=== PATIENT | male | born 1975 | race Caucasian/White ===

== ENCOUNTER 2018-05-01 01:44 | Emergency (ER) | payer BC, OTHER ==
[2018-05-01] MEDS ORDERED: Sodium Chloride 0.9% 1,000 ML IV ONE (02:13)
[2018-05-01] MEDS ORDERED: Iohexol 240 (50 ml) PO STA (02:13)
--- NOTE | 2018-05-01 02:13 | C.PDOC ---
History Of Present Illness 42 y/o male presents to the ED complaining of a new onset of LLQ pain for three weeks. He states today the pain radiates to the left lower back. The patient has a Hx of diverticulitis. He reports normally the pain is localized, waxing and waning. The patient took 3 doses of ampicillin over the last three day. He denies any fever, nausea or vomiting. Time Seen by Provider: 05/01/18 01:48 History Per: Patient History/Exam Limitations: no limitations Onset/Duration Of Symptoms: Days Current Symptoms Are (Timing): Still Present Location Of Pain/Discomfort: LLQ Radiation Of Pain To:: Back (left lower back pain (today)) Associated Symptoms: denies: Fever, Nausea, Vomiting Alleviating Factors: Other (3 doses of ampicillin) Recent travel outside of the [place]: No Past Medical History Reviewed: Historical Data, Nursing Documentation, Vital Signs Vital Signs: Last Vital Signs Temp 98.1 F 05/01/18 04:11 Pulse 57 L 05/01/18 04:11 Resp 20 05/01/18 04:11 BP 121/87 05/01/18 04:11 Pulse Ox 96 05/01/18 05:36 - Medical History PMH: Back Problems, Diverticulitis, HTN Surgical History: Appendectomy, Hernia Repair (Right) Family History: States: Unknown Family Hx - Social History Hx Tobacco Use: No Hx Alcohol Use: Yes Hx Substance Use: No - Immunization History Hx Tetanus Toxoid Vaccination: No Hx Influenza Vaccination: Yes Hx Pneumococcal Vaccination: No Review Of Systems Except As Marked, All Systems Reviewed And Found Negative. Constitutional: Negative for: Fever Gastrointestinal: Positive for: Abdominal Pain (LLQ). Negative for: Nausea, Vomiting Musculoskeletal: Positive for: Back Pain (Left lower back) Physical Exam - Physical Exam Appears: Non-toxic, Other (Comfortable) Skin: Normal Color, Warm, Dry Head: Atraumatic, Normacephalic Eye(s): bilateral: PERRL, EOMI Ear(s): Bilateral: Normal Oral Mucosa: Moist Neck: Normal ROM Chest: Symmetrical Respiratory: No Rales, No Rhonchi, No Wheezing, Other (NARD) Gastrointestinal/Abdominal: Soft, Tenderness (minimal tenderness to LLQ), No Guarding, No Rebound Extremity: Normal ROM Extremity: Bilateral: Atraumatic, Normal Color And Temperature, Normal ROM Pulses: Left Radial: Normal, Right Radial: Normal Neurological/Psych: Oriented x3, Normal Speech ED Course And Treatment - Laboratory Results Result Diagrams: 05/01/18 02:18 05/01/18 02:18 O2 Sat by Pulse Oximetry: 96 (RA) Pulse Ox Interpretation: Normal - CT Scan/US Abdomen & Pelvis Other Rad Studies (CT/US): Read By Radiologist, Radiology Report Reviewed CT/US Interpretation: IMPRESSION: No evidence of an acute abnormality. Progress - Re-Evaluation Re-evaluation Note: 05/01/18 05:[address] report neg - Data Reviewed Data Reviewed: Lab, Diagnostic imaging, Old records Medical Decision Making Medical Decision Making: Impression: 42 y/o male, Hx of diverticulitis, with LLQ pain for three weeks that radiates to the left lower back (x1 day) Plan: -CT abd & Pelvis w/ contrast -CMP -Lipase -CBC -Morphine 2 mg IV -IV Fluids -UA Disposition Counseled Patient/Family Regarding: Studies Performed, Diagnosis, Need For Followup - Disposition Referrals: Shane Ware Jr., MD [Primary Care Provider] - Disposition: HOME/ ROUTINE Disposition Time: 05:37 Condition: GOOD Instructions: Acute Abdomen (Belly Pain), Adult (DC) - Clinical Impression Clinical Impression: Abdominal pain - PA / ENERGY CONSERVATION REPRESENTATIVE / Resident Statement MD/DO has reviewed & agrees with the documentation as recorded. - Scribe Statement The provider has reviewed the documentation as recorded by the Scribe (rKisty Ochoa) All medical record entries made by the Scribe were at my direction and personally dictated by me. I have reviewed the chart and agree that the record accurately reflects my personal performance of the history, physical exam, medical decision making, and the department course for this patient. I have also personally directed, reviewed, and agree with the discharge instructions and disposition.
[2018-05-01] MEDS ORDERED: Iohexol 240 (50 ml) ONE (02:20)
[2018-05-01] MEDS ORDERED: Sodium Chloride 0.9% 1,000 ML ONE (02:20)
[2018-05-01 02:21] LABS: BASO % 0.7 % (0.0-2.0); EOS % 1.1 % (0.0-4.0); HEMOGLOBIN 14.4 g/dL (12.0-18.0); LYMPH # 1.7 K/uL (1.0-4.3); LYMPH % 47.8 % (20.0-40.0); MEAN CELL VOLUME 86.1 fL (80.0-94.0); MEAN CORPUSCULAR HGB CONC 34.9 g/dL (33.0-37.0); MONO # 0.4 K/uL (0.0-0.8); MONO % 11.4 % (0.0-10.0); NEUT # 1.4 K/uL (1.8-7.0); RBC 4.79 Mil/uL (4.40-5.90); RED CELL DISTRIBUTION WIDTH 13.8 % (11.5-14.5); WHITE BLOOD COUNT 3.6 K/uL (4.8-10.8)
[2018-05-01 02:43] LABS: URINE BACTERIA RARE (<OCC); URINE BILIRUBIN NEGATIVE (NEGATIVE); URINE BLOOD 1+ (NEGATIVE); URINE CLARITY Clear (Clear); URINE COLOR Yellow (YELLOW); URINE GLUCOSE (UA) NORMAL (Normal); URINE LEUKOCYTE ESTERASE NEG Leu/uL (Negative); URINE PROTEIN NEGATIVE (NEGATIVE)
[2018-05-01 03:30] LABS: ALB/GLOB RATIO 1.5 (1.0-2.1); ALBUMIN 4.1 g/dL (3.5-5.0); ALT/SGPT 34 U/L (21-72); AST/SGOT 22 U/L (17-59); BLOOD UREA NITROGEN 22 mg/dL (9-20); CALCIUM 8.7 mg/dl (8.6-10.4); GFR NON-AFRICAN AMERICAN > 60; LIPASE 117 U/L (23-300)
[2018-05-01] MEDS ORDERED: Iodixanol 320 MG/ML 100 ML BOTTLE IV ONE (03:47)
[2018-05-01 05:52] VITALS: BP 129/83; PULSE 58; RESP 16; TEMP 97.9; O2SAT 100
--- NOTE | 2018-05-01 09:06 | CT ---
Date of service: 05/01/2018 PROCEDURE: CT Abdomen and Pelvis without intravenous contrast HISTORY: Left lower quadrant abdominal pain. Diverticulitis. COMPARISON: None available. TECHNIQUE: Multiple contiguous axial images were performed through the abdomen and pelvis with the use of intravenous contrast. Subsequently, sagittal and coronal reformatted images were obtained. Radiation dose: Total exam DLP = 276 mGy-cm. This CT exam was performed using one or more of the following dose reduction techniques: Automated exposure control, adjustment of the mA and/or kV according to patient size, and/or use of iterative reconstruction technique. FINDINGS: LOWER THORAX: Bibasilar atelectasis. Small hiatal hernia. LIVER: Fatty infiltration of the liver. GALLBLADDER AND BILE DUCTS: Partially distended gallbladder with gallstones. PANCREAS: Unremarkable. No gross lesion or ductal dilatation. SPLEEN: Unremarkable. ADRENALS: Unremarkable. No mass. KIDNEYS AND URETERS: Unremarkable. No hydronephrosis. No solid mass. VASCULATURE: Unremarkable. No aortic aneurysm. BOWEL: Diverticulosis. Duodenal diverticulum. Large amount of stool in the colon. Correlation with patient's clinical history of constipation is recommended. Nonspecific fluid-filled small bowel loops. Findings may represent ileus versus enteritis versus slow transit versus peristalsis. Clinical correlation. APPENDIX: Prior appendectomy. PERITONEUM: Unremarkable. No free fluid. No free air. LYMPH NODES: Unremarkable. No enlarged lymph nodes. BLADDER: Urinary bladder distention. Correlation with patient's voiding status is recommended. REPRODUCTIVE: Unremarkable. BONES: No acute fracture. OTHER FINDINGS: Fat containing umbilical hernia. IMPRESSION: 1. Diverticulosis. Large amount of stool in the colon. Correlation with patient's clinical history of constipation is recommended. 2. Nonspecific fluid-filled small bowel loops. Findings may represent ileus versus enteritis versus slow transit versus peristalsis. Clinical correlation. 3. Duodenal diverticulum. 4. Partially distended gallbladder with gallstones. Clinical correlation. 5. Fatty infiltration of the liver.
== END 2018-05-01 06:06 | disposition home or self-care (01) ==
LOC: C.ER 01:44 → SUPCPDRO 01:44 → C.ER 06:06
DX: R10.32 Left lower quadrant pain (principal)
CPT/HCPCS: 74177; 80053; 81001; 83690; 85025; 96361; 96374; 99284; J2270; J7030; Q9966; Q9967

== ENCOUNTER 2018-06-23 10:32 | Inpatient (IN) | payer BC ==
[2018-06-23] MEDS ORDERED: Sodium Chloride 0.9% 1,000 ML IV STA (11:33)
[2018-06-23] MEDS ORDERED: Iohexol 240 (50 ml) PO STA (11:33)
[2018-06-23 11:45] LABS: BASO % 0.4 % (0.0-2.0); EOS % 0.6 % (0.0-4.0); HEMOGLOBIN 14.6 g/dL (12.0-18.0); LYMPH % 14.7 % (20.0-40.0); MEAN CELL VOLUME 86.3 fL (80.0-94.0); MEAN CORPUSCULAR HEMOGLOBIN 30.1 pg (27.0-31.0); MEAN CORPUSCULAR HGB CONC 34.9 g/dL (33.0-37.0); MEAN PLATELET VOLUME 7.8 fL (7.2-11.7); MONO # 0.6 K/uL (0.0-0.8); MONO % 9.1 % (0.0-10.0); NEUT # 5.2 K/uL (1.8-7.0); NEUT % 75.2 % (50.0-75.0); RBC 4.84 Mil/uL (4.40-5.90); RED CELL DISTRIBUTION WIDTH 13.6 % (11.5-14.5)
[2018-06-23] MEDS ORDERED: Iohexol 240 (50 ml) ONE (11:49)
[2018-06-23] MEDS ORDERED: Morphine 4 MG/ML VIAL ONE (11:50)
[2018-06-23] MEDS ORDERED: Sodium Chloride 0.9% 1,000 ML ONE (11:50)
[2018-06-23 11:52] LABS: URINE BILIRUBIN NEGATIVE (NEGATIVE); URINE BLOOD NEGATIVE (NEGATIVE); URINE CLARITY Clear (Clear); URINE COLOR Yellow (YELLOW); URINE GLUCOSE (UA) NORMAL (Normal); URINE LEUKOCYTE ESTERASE NEG Leu/uL (Negative); URINE PROTEIN NEGATIVE (NEGATIVE)
[2018-06-23 12:01] LABS: ALB/GLOB RATIO 1.4 (1.0-2.1); ALBUMIN 4.1 g/dL (3.5-5.0); ALT/SGPT 30 U/L (21-72); AST/SGOT 24 U/L (17-59); BLOOD UREA NITROGEN 21 mg/dL (9-20); CALCIUM 8.4 mg/dl (8.6-10.4); GFR NON-AFRICAN AMERICAN > 60; LIPASE 70 U/L (23-300)
--- NOTE | 2018-06-23 12:40 | C.PDOC ---
History Of Present Illness 42 y/o male presents to the ED complaining of abdominal pain for the last 3 days. He reports PMHx of diverticulitis, states current pain is similar to previous episodes. Describes pain as localized to the left lower quadrant, radiating to the back. Otherwise denies any nausea, vomiting, diarrhea, UTI symptoms, or fever. No recent travel. No sick contacts. Time Seen by Provider: 06/23/18 10:46 Chief Complaint (Nursing): Abdominal Pain History Per: Patient History/Exam Limitations: no limitations Onset/Duration Of Symptoms: Days (x3) Current Symptoms Are (Timing): Still Present Location Of Pain/Discomfort: LLQ Radiation Of Pain To:: Back Past Medical History Reviewed: Historical Data, Nursing Documentation, Vital Signs Vital Signs: Last Vital Signs Temp 98.6 F 06/23/18 10:40 Pulse 66 06/23/18 11:56 Resp 18 06/23/18 11:56 BP 136/83 06/23/18 11:56 Pulse Ox 99 06/23/18 11:56 - Medical History PMH: Back Problems, Diverticulitis, HTN Surgical History: Appendectomy, Hernia Repair (Right) Family History: States: Unknown Family Hx - Social History Hx Tobacco Use: No Hx Alcohol Use: Yes Hx Substance Use: No - Immunization History Hx Tetanus Toxoid Vaccination: No Hx Influenza Vaccination: No Hx Pneumococcal Vaccination: No Review Of Systems Except As Marked, All Systems Reviewed And Found Negative. Constitutional: Negative for: Fever, Chills, Sweats Respiratory: Negative for: Shortness of Breath Gastrointestinal: Positive for: Abdominal Pain (LLQ). Negative for: Nausea, Vomiting, Diarrhea, Hematochezia Genitourinary: Negative for: Dysuria, Frequency, Hematuria Musculoskeletal: Positive for: Back Pain Physical Exam - Physical Exam Appears: Non-toxic, No Acute Distress Skin: Normal Color, Warm, Dry Head: Atraumatic, Normacephalic Eye(s): bilateral: Normal Inspection, PERRL, EOMI Oral Mucosa: Moist Neck: Normal ROM Chest: Symmetrical Cardiovascular: Rhythm Regular, No Murmur Respiratory: Normal Breath Sounds, No Accessory Muscle Use Gastrointestinal/Abdominal: Soft, Tenderness (to the left lower quadrant), Guarding (voluntary), No Rebound Back: No CVA Tenderness, No Vertebral Tenderness Extremity: Bilateral: Atraumatic, Normal Color And Temperature, Normal ROM Pulses: Left Dorsalis Pedis: Normal, Right Dorsalis Pedis: Normal Neurological/Psych: Oriented x3, Normal Speech ED Course And Treatment - Laboratory Results Result Diagrams: 06/23/18 11:41 06/23/18 11:41 O2 Sat by Pulse Oximetry: 99 (RA) Pulse Ox Interpretation: Normal - CT Scan/US CT Abd/Pelvis Other Rad Studies (CT/US): Read By Radiologist, Radiology Report Reviewed CT/US Interpretation: Accession No. : [id number]. Patient Name / ID : NIA PRITCHARD / [id number]. Exam Date : 06/23/2018 14:21:03 ( Approved ). Study Comment : Sex / Age : M / 42Y. Creator : Lauren You. Dictator : Julieta Lerner MD. Die Cast Die Maker : Issue Clerk : Julieta Lerner MD. Approver2 : Report Date : 06/23/2018 14:26:00. My Comment : . PROCEDURE: CT Abdomen and Pelvis with oral and IV contrast. HISTORY: LLQ abd pain. COMPARISON: CT abdomen and pelvis with contrast performed 05/01/18. TECHNIQUE: Contiguous axial images of the abdomen and pelvis. Oral and IV contrast was administered. Coronal and Sagittal reformats generated and reviewed. Contrast dose: 100 mL Visipaque IV. Radiation dose: Total exam DLP = 392.69 mGy-cm. This CT exam was performed using one or more of the following dose reduction techniques: Automated exposure control, adjustment of the mA and/or kV according to patient size, and/or use of iterative reconstruction technique. FINDINGS: LOWER THORAX: Mild bibasilar atelectasis. No visible focal consolidation, pleural effusion, or pneumothorax. Small hiatal hernia. LIVER: Unremarkable. GALLBLADDER AND BILE DUCTS: Probable gallstone in the gallbladder. Suspect small sludge. PANCREAS: Unremarkable. SPLEEN: Unremarkable. ADRENALS: Unremarkable. KIDNEYS AND URETERS: The kidneys enhance symmetrically. No hydronephrosis or obstructing renal calculus. BLADDER: The urinary bladder appears unremarkable. REPRODUCTIVE: The prostate gland measures approximately 3.9 x 5.2 cm. APPENDIX: Surgical clips near the cecum may be seen in the setting of appendectomy. No secondary signs of acute appendicitis. BOWEL: The stomach is nondistended. The bowel loops appear wit hin normal limits of caliber without evidence of intestinal obstruction. Wall thickening and inflammatory changes involving a redundant distal left colon consistent with acute diverticulitis. PERITONEUM: No significant free fluid. No definite free air. LYMPH NODES: No bulky lymphadenopathy identified. VASCULATURE: No aortic aneurysm. Castillo or mural plaque present. BONES: No acute osseous abnormality is detected. OTHER FINDINGS: None. IMPRESSION: Acute diverticulitis of the redundant distal left colon. Probable gallstones/small sludge within the gallbladder. Additional findings as above. Progress Note: Blood work and urine sent to the lab. IVF hydration and [address] abdomen/pelvis ordered with PO and IV contrast. CT shows acute diverticulitis and probable gall stones. Discussed results with patient. Cipro and flagyl IV started. case was d/w patient's PMD who accepted patient to his service for anadmission and IV antibiotics. Disposition - Disposition Disposition: HOSPITALIZED Disposition Time: 15:38 Condition: FAIR - Clinical Impression Clinical Impression: Acute diverticulitis - PA / HEAD BANQUET WAITER/WAITRESS / Resident Statement MD/DO has reviewed & agrees with the documentation as recorded. - Scribe Statement The provider has reviewed the documentation as recorded by the Scribe (Allison Schultz) All medical record entries made by the Scribe were at my direction and personally dictated by me. I have reviewed the chart and agree that the record accurately reflects my personal performance of the history, physical exam, me dical decision making, and the department course for this patient. I have also personally directed, reviewed, and agree with the discharge instructions and disposition. Decision To Admit - Pt Status Changed To: Hospital Disposition Of: Inpatient - Admit Certification Admit to Inpatient:: After my assessment, the patient will require hospitalization for at least two midnights. This is because of the severity of symptoms shown, intensity of services needed, and/or the medical risk in this pa tient being treated as an outpatient. - InPatient: Physician Admission Certification:: will need IV antibiotics for more than 2 days - . Bed Request Type: Regular Patient Diagnosis: Acute diverticulitis
[2018-06-23] MEDS ORDERED: Iodixanol 320 MG/ML 100 ML BOTTLE IV ONE (14:11)
--- NOTE | 2018-06-23 15:01 | CT ---
PROCEDURE: CT Abdomen and Pelvis with oral and IV contrast. HISTORY: LLQ abd pain COMPARISON: CT abdomen and pelvis with contrast performed 05/01/18 TECHNIQUE: Contiguous axial images of the abdomen and pelvis. Oral and IV contrast was administered. Coronal and Sagittal reformats generated and reviewed. Contrast dose: 100 mL Visipaque IV Radiation dose: Total exam DLP = 392.69 mGy-cm. This CT exam was performed using one or more of the following dose reduction techniques: Automated exposure control, adjustment of the mA and/or kV according to patient size, and/or use of iterative reconstruction technique. FINDINGS: LOWER THORAX: Mild bibasilar atelectasis. No visible focal consolidation, pleural effusion, or pneumothorax. Small hiatal hernia. LIVER: Unremarkable. GALLBLADDER AND BILE DUCTS: Probable gallstone in the gallbladder. Suspect small sludge. PANCREAS: Unremarkable. SPLEEN: Unremarkable. ADRENALS: Unremarkable. KIDNEYS AND URETERS: The kidneys enhance symmetrically. No hydronephrosis or obstructing renal calculus. BLADDER: The urinary bladder appears unremarkable. REPRODUCTIVE: The prostate gland measures approximately 3.9 x 5.2 cm. APPENDIX: Surgical clips near the cecum may be seen in the setting of appendectomy. No secondary signs of acute appendicitis. BOWEL: The stomach is nondistended. The bowel loops appear within normal limits of caliber without evidence of intestinal obstruction. Wall thickening and inflammatory changes involving a redundant distal left colon consistent with acute diverticulitis. PERITONEUM: No significant free fluid. No definite free air. LYMPH NODES: No bulky lymphadenopathy identified. VASCULATURE: No aortic aneurysm. Castillo or mural plaque present. BONES: No acute osseous abnormality is detected. OTHER FINDINGS: None. IMPRESSION: Acute diverticulitis of the redundant distal left colon. Probable gallstones/small sludge within the gallbladder. Additional findings as above.
[2018-06-23] MEDS ORDERED: metroNIDAZOLE IV 500 mg/100 ml 500 MG/100 ML BAG IV STA (15:35)
[2018-06-23] MEDS ORDERED: Ciprofloxacin 400mg/200ml D5W 400 MG/200 ML BAG IV STA (15:35)
[2018-06-23] MEDS ORDERED: Ciprofloxacin 400mg/200ml D5W 400 MG/200 ML BAG IVPB ONE (15:50)
[2018-06-23] MEDS ORDERED: metroNIDAZOLE IV 500 mg/100 ml 500 MG/100 ML BAG ONE (15:50)
--- NOTE | 2018-06-23 16:13 | CP.PCM.HP ---
History of Present Illness - History of Present Illness History of Present Illness: [place] Prasad PGY1 H&P for Dr. Ware Pt is a 42yo M with PMH diverticulitis, HTN, and migraines who presents to the ED with abdominal pain for 3 days. He reports a sharp, pulsating abdominal pain that he rates "20/10" on the left side. He reports previous history of this type of pain (last ED visit 05/01/18) for which he was worked up for diverticulitis (s/p colonoscopy ?date, reported diverticulitis). He tried taking ibuprofen at home, but had no relief. He also reports associated dysuria for the past day, denying change in frequency of urination or any blood in the urine. He reports normal bowel movements, denying constipation or diarrhea. He denies any nausea, vomiting, chest pain, shortness of breath, dizziness. In the ED: CT abdomen showed acute diverticulitis of distal L colon, possible gallstones/sludge in gallbladder. PMH: diverticulitis, HTN, migraines SxH: appendectomy, R hernia repair SocH: denies tobacco or recreational drug use. reports occasional etoh use Allergies: NKDA Meds: valsartan 80mg daily, truvada 100mg daily PMD: Chaz Present on Admission - Present on Admission Any Indicators Present on Admission: No Review of Systems - Review of Systems Review of Systems: as per HPI Past Patient History - Past Social History Smoking Status: Never Smoked - CARDIAC Hx Hypertension: Yes - MUSCULOSKELETAL/RHEUMATOLOGICAL Hx Musculoskeletal Disorders: Yes - GASTROINTESTINAL Hx Diverticulitis: Yes - PSYCHIATRIC Hx Substance Use: No - SURGICAL HISTORY Hx Appendectomy: Yes - ANESTHESIA Hx Anesthesia: Yes Meds Allergies/Adverse Reactions: Allergies Allergy/AdvReac Type Severity Reaction Status Date / Time No Known Allergies Allergy Verified 04/24/16 00:03 Physical Exam - Constitutional Appears: Well, No Acute Distress - Head Exam Head Exam: ATRAUMATIC, NORMOCEPHALIC - Eye Exam Eye Exam: EOMI, Normal appearance, PERRL Pupil Exam: NORMAL ACCOMODATION - ENT Exam ENT Exam: Mucous Membranes Moist - Respiratory Exam Respiratory Exam: Clear to Auscultation Bilateral, NORMAL BREATHING PATTERN. absent: Rales, Rhonchi, Wheezes - Cardiovascular Exam Cardiovascular Exam: REGULAR RHYTHM, +S1, +S2. absent: Gallop, Rubs, Systolic Murmur - GI/Abdominal Exam GI & Abdominal Exam: Normal Bowel Sounds, Soft, Tenderness. absent: Distended, Firm, Guarding, Rebound Additional comments: tenderness to palpation of LLQ suprapubic tenderness - Extremities Exam Extremities exam: Positive for: normal inspection. Negative for: pedal edema - Neurological Exam Neurological exam: Alert, Oriented x3 - Psychiatric Exam Psychiatric exam: Normal Affect, Normal Mood - Skin Skin Exam: Normal Color Results - Vital Signs Recent Vital Signs: Last Vital Signs Temp 98.1 F 06/23/18 14:49 Pulse 66 06/23/18 14:49 Resp 17 06/23/18 14:49 BP 121/82 06/23/18 14:49 Pulse Ox 99 06/23/18 15:39 - Labs Result Diagrams: 06/23/18 11:41 06/23/18 11:41 Labs: Laboratory Results - last 24 hr 06/23/18 06/23/18 06/23/18 11:41 11:41 11:41 WBC 7.0 D RBC 4.84 Hgb 14.6 Hct 41.8 MCV 86.3 MCH 30.1 MCHC 34.9 RDW 13.6 Plt Count 219 MPV 7.8 Neut % (Auto) 75.2 H Lymph % (Auto) 14.7 L Motley % (Auto) 9.1 Eos % (Auto) 0.6 Baso % (Auto) 0.4 Neut # (Auto) 5.2 Lymph # (Auto) 1.0 Motley # (Auto) 0.6 Eos # (Auto) 0.0 Baso # (Auto) 0.0 Sodium 139 Potassium 4.2 Chloride 102 Carbon Dioxide 30 Anion Gap 12 BUN 21 H Creatinine 0.8 Est GFR ( Amer) > 60 Est GFR (Non-Af Amer) > 60 Random Glucose 91 Calcium 8.4 L Total Bilirubin 0.7 AST 24 ALT 30 Alkaline Phosphatase 34 L Total Protein 7.1 Albumin 4.1 Globulin 3.0 Albumin/Globulin Ratio 1.4 Lipase 70 Urine Color Yellow Urine Clarity Clear Urine pH 6.0 Ur Specific [place] 1.025 Urine Protein Negative Urine Glucose (UA) Normal Urine Ketones Negative Urine Blood Negative Urine Nitrate Negative Urine Bilirubin Negative Urine Urobilinogen 2.0 Ur Leukocyte Esterase Neg Urine RBC (Auto) 1 Assessment & Plan - Assessment and Plan (Free Text) Assessment: 42yo M with PMH diverticulitis, HTN, migraines presented to ED with abdominal pain for 3 days, admitted for further evaluation and treatment of diverticulitis Plan: Acute Diverticulitis - CT abdomen: acute diverticulitis of distal L colon, possible gallstones/sludge in gallbladder - pt afebrile, no leukocytosis - lipase 70, normal - cipro 400mg IV q12h (06/23) - flagyl 500mg IV q8h (06/23) - solumedrol 40mg IVPB q12h - D5 1/2 NS 1000ml @100ml/hr - dilaudid 1mg IV q4h PRN for pain - NPO HTN - losartan 50mg PO daily PPX: - DVT: SCDs - GI: not indicated at this time - NPO Case discussed and plan reviewed with Dr. Ware
[2018-06-23] MEDS ORDERED: Morphine 4 MG/ML VIAL IVP PRN (16:29)
[2018-06-23] MEDS ORDERED: HYDROmorphone 1 mg/ml ISec IVP PRN (16:38)
[2018-06-23] MEDS ORDERED: methylPREDNISolone 40 MG in Sodium Chloride 0.9% 100 ML IVPB SCH (16:45)
[2018-06-23] MEDS: MethylPREDNISolone 40 mg Vial IV SCH (18:26)
[2018-06-23] MEDS: Dextrose 5%/0.45% NS 1,000 ML IV SCH (18:29)
[2018-06-23] MEDS: metroNIDAZOLE IV 500 mg/100 ml 500 MG/100 ML BAG IVPB SCH (22:26)
[2018-06-24 00:37] VITALS: RESP 20
[2018-06-24] MEDS: Ciprofloxacin 400mg/200ml D5W 400 MG/200 ML BAG IVPB SCH ×2 (03:07→15:40)
[2018-06-24] MEDS: Dextrose 5%/0.45% NS 1,000 ML IV SCH ×4 (03:09→21:46)
[2018-06-24] MEDS: MethylPREDNISolone 40 mg Vial IV SCH ×2 (05:07→16:45)
[2018-06-24] MEDS: metroNIDAZOLE IV 500 mg/100 ml 500 MG/100 ML BAG IVPB SCH ×3 (05:08→21:45)
--- NOTE | 2018-06-24 07:20 | CP.PCM.PN ---
Subjective - Date & Time of Evaluation Date of Evaluation: 06/24/18 Time of Evaluation: 07:20 - Subjective Subjective: PGY-[address] Ware Patient seen and examined at bedside. No acute events overnight. Patient states his abdominal pain has improved and would like to start eating. He denies fevers, chills, cough, chest pain. shortness of breath, diarrhea, nausea, or vomiting. Objective - Vital Signs/Intake and Output Vital Signs (last 24 hours): Temp Pulse Resp BP Pulse Ox 98.8 F 78 20 121/74 96 06/24/18 00:36 06/24/18 00:36 06/24/18 00:36 06/24/18 00:36 06/24/18 00:36 Intake and Output: 06/24/18 06/24/18 06:59 18:59 Intake Total 500 Balance 500 - Medications Medications: Current Medications Emtricitabine/Tenofovir (Truvada 200 Mg-300 Mg) 1 tab PO DAILY MANA; Protocol Hydromorphone HCl (Dilaudid) 1 mg IVP Q4H PRN PRN Reason: Pain, moderate (4-7) Dextrose/Sodium Chloride (Dextrose 5%/0.45% Ns 1000 Ml) 1,000 mls @ 100 mls/hr IV .Q10H MANA Last Admin: 06/24/18 03:09 Dose: Not Given Ciprofloxacin (Cipro 400mg/200ml Dsw) 400 mg in 200 mls @ 133 mls/hr IVPB Q12H MANA; Protocol Last Admin: 06/24/18 03:07 Dose: 133 mls/hr Metronidazole (Flagyl) 500 mg in 100 mls @ 100 mls/hr IVPB Q8H MANA; Protocol Last Admin: 06/24/18 05:08 Dose: 100 mls/hr Influenza Virus Vaccine (Fluzone Quad 6637-3535) 60 mcg IM .ONCE ONE Stop: 06/25/18 10:01 Losartan Potassium (Cozaar) 50 mg PO DAILY [facility] Methylprednisolone (Solu-Medrol) 40 mg IV Q12H MANA Last Admin: 06/24/18 05:07 Dose: 40 mg Pneumococcal Polyvalent Vaccine (Pneumovax 23 Vaccine) 0.5 ml IM .ONCE ONE Stop: 06/25/18 10:01 - Labs Labs: 06/23/18 11:41 06/23/18 11:41 - Additional Findings Additional findings: - Constitutional Appears: Well, No Acute Distress - Head Exam Head Exam: ATRAUMATIC, NORMOCEPHALIC - Eye Exam Eye Exam: EOMI, Normal appearance, PERRL Pupil Exam: NORMAL ACCOMODATION - ENT Exam ENT Exam: Mucous Membranes Moist - Respiratory Exam Respiratory Exam: Clear to Auscultation Bilateral, NORMAL BREATHING PATTERN. absent: Rales, Rhonchi, Wheezes - Cardiovascular Exam Cardiovascular Exam: REGULAR RHYTHM, +S1, +S2. absent: Gallop, Rubs, Systolic Murmur - GI/Abdominal Exam GI & Abdominal Exam: Normal Bowel Sounds, Soft, Tenderness. absent: Distended, Firm, Guarding, Rebound Additional comments: tenderness to palpation of LLQ suprapubic tenderness - Extremities Exam Extremities exam: Positive for: normal inspection. Negative for: pedal edema - Neurological Exam Neurological exam: Alert, Oriented x3 - Psychiatric Exam Psychiatric exam: Normal Affect, Normal Mood - Skin Skin Exam: Normal Color Assessment and Plan - Assessment and Plan (Free Text) Assessment: Patient is a 42 year old male with PMH diverticulitis, HTN, and migraines admitted for treatment of diverticulitis. Plan: Acute Diverticulitis: - CT abdomen (06/23): acute diverticulitis of distal L colon, possible gallstones/sludge in gallbladder. - Patient afebrile, no leukocytosis - Ciprofloxacin 400mg IV q12h (Started on 06/23) - Flagyl 500mg IV q8h (Started on 06/23) - Solumedrol 40mg IVPB q12h - D5 1/2 NS 1000ml @100ml/hr - Dilaudid 1mg IV q4h PRN for pain - NPO HTN: - Losartan 50mg PO daily Hx of depression: - Sertraline 100mg PO QD Insomnia: - Atarax 25mg PO HS PRN PPX: - DVT: SCDs - GI: not indicated at this time - NPO Case discussed and plan reviewed with Dr. Chaz Christopher, PGY-1
[2018-06-24 07:49] LABS: LYMPH # 0.7 K/uL (1.0-4.3); LYMPH % 11.1 % (20.0-40.0); MEAN CELL VOLUME 86.7 fL (80.0-94.0); MEAN CORPUSCULAR HGB CONC 34.6 g/dL (33.0-37.0); MONO # 0.2 K/uL (0.0-0.8); MONO % 2.7 % (0.0-10.0); NEUT # 5.6 K/uL (1.8-7.0); NEUT % 86.2 % (50.0-75.0); RBC 4.99 Mil/uL (4.40-5.90); RED CELL DISTRIBUTION WIDTH 13.5 % (11.5-14.5); WHITE BLOOD COUNT 6.5 K/uL (4.8-10.8)
[2018-06-24 07:59] LABS: INR 1.2; PROTHROMBIN TIME 13.1 SECONDS (9.7-12.2)
[2018-06-24 08:21] LABS: ALB/GLOB RATIO 1.3 (1.0-2.1); ALBUMIN 3.9 g/dL (3.5-5.0); ALT/SGPT 32 U/L (21-72); AST/SGOT 22 U/L (17-59); BLOOD UREA NITROGEN 13 mg/dL (9-20); CALCIUM 8.7 mg/dl (8.6-10.4); GFR NON-AFRICAN AMERICAN > 60
[2018-06-24] MEDS: Emtricitabine-Tenofovir 200 mg-300 mg Tab PO SCH (11:00)
[2018-06-25] MEDS: Ciprofloxacin 400mg/200ml D5W 400 MG/200 ML BAG IVPB SCH ×2 (02:58→16:25)
[2018-06-25] MEDS: MethylPREDNISolone 40 mg Vial IV SCH ×2 (04:40→17:27)
[2018-06-25] MEDS: metroNIDAZOLE IV 500 mg/100 ml 500 MG/100 ML BAG IVPB SCH ×2 (05:21→14:16)
[2018-06-25 07:17] LABS: INR 1.2; PROTHROMBIN TIME 13.3 SECONDS (9.7-12.2)
[2018-06-25 07:18] LABS: BASO % 0.2 % (0.0-2.0); HEMOGLOBIN 14.1 g/dL (12.0-18.0); LYMPH # 0.9 K/uL (1.0-4.3); MEAN CELL VOLUME 85.9 fL (80.0-94.0); MEAN CORPUSCULAR HEMOGLOBIN 30.1 pg (27.0-31.0); MEAN PLATELET VOLUME 7.9 fL (7.2-11.7); MONO # 0.5 K/uL (0.0-0.8); NEUT # 7.3 K/uL (1.8-7.0); NEUT % 83.8 % (50.0-75.0); RBC 4.69 Mil/uL (4.40-5.90); RED CELL DISTRIBUTION WIDTH 13.6 % (11.5-14.5); WHITE BLOOD COUNT 8.8 K/uL (4.8-10.8)
[2018-06-25 07:27] LABS: ALB/GLOB RATIO 1.3 (1.0-2.1); ALBUMIN 3.6 g/dL (3.5-5.0); ALT/SGPT 30 U/L (21-72); AST/SGOT 12 U/L (17-59); BLOOD UREA NITROGEN 12 mg/dL (9-20); CALCIUM 8.2 mg/dl (8.6-10.4); GFR NON-AFRICAN AMERICAN > 60
[2018-06-25] MEDS: Emtricitabine-Tenofovir 200 mg-300 mg Tab PO SCH (09:40)
[2018-06-25] MEDS ORDERED: Influenza Vaccine 60 MCG/0.5 ML SYR (3 yr & up) IM ONE (10:00)
[2018-06-25] MEDS ORDERED: Pneumococcal 23-Valent Vaccine IM ONE (10:00)
[2018-06-25 16:33] VITALS: BP 137/73; PULSE 70; TEMP 98.2; O2SAT 96
--- NOTE | 2018-06-25 17:11 | CP.PCM.DIS ---
Provider - Provider Date of Admission: 06/23/18 15:37 Attending physician: Shane Ware Jr, MD Time Spent in preparation of Discharge (in minutes): 45 Diagnosis - Discharge Diagnosis (1) Acute diverticulitis Status: Acute Hospital Course - Lab Results Lab Results: Most Recent Lab Values WBC 8.8 K/uL (4.8-10.8) 06/25/18 07:03 RBC 4.69 Mil/uL (4.40-5.90) 06/25/18 07:03 Hgb 14.1 g/dL (12.0-18.0) 06/25/18 07:03 Hct 40.3 % (35.0-51.0) 06/25/18 07:03 MCV 85.9 fL (80.0-94.0) 06/25/18 07:03 MCH 30.1 pg (27.0-31.0) 06/25/18 07:03 MCHC 35.0 g/dL (33.0-37.0) 06/25/18 07:03 RDW 13.6 % (11.5-14.5) 06/25/18 07:03 Plt Count 236 K/uL (130-400) 06/25/18 07:03 MPV 7.9 fL (7.2-11.7) 06/25/18 07:03 Neut % (Auto) 83.8 % (50.0-75.0) H 06/25/18 07:03 Lymph % (Auto) 10.0 % (20.0-40.0) L 06/25/18 07:03 [place] % (Auto) 6.0 % (0.0-10.0) 06/25/18 07:03 Eos % (Auto) 0.0 % (0.0-4.0) 06/25/18 07:03 Baso % (Auto) 0.2 % (0.0-2.0) 06/25/18 07:03 Neut # (Auto) 7.3 K/uL (1.8-7.0) H 06/25/18 07:03 Lymph # (Auto) 0.9 K/uL (1.0-4.3) L 06/25/18 07:03 Park # (Auto) 0.5 K/uL (0.0-0.8) 06/25/18 07:03 Eos # (Auto) 0.0 K/uL (0.0-0.7) 06/25/18 07:03 Baso # (Auto) 0.0 K/uL (0.0-0.2) 06/25/18 07:03 PT 13.3 SECONDS (9.7-12.2) H 06/25/18 07:03 INR 1.2 06/25/18 07:03 APTT 31 SECONDS (21-34) 06/25/18 07:03 Sodium 140 mmol/L (132-148) 06/25/18 07:03 Potassium 3.9 mmol/L (3.6-5.2) 06/25/18 07:03 Chloride 107 mmol/L (98-107) 06/25/18 07:03 Carbon Dioxide 26 mmol/L (22-30) 06/25/18 07:03 Anion Gap 11 (10-20) 06/25/18 07:03 BUN 12 mg/dL (9-20) 06/25/18 07:03 Creatinine 0.8 mg/dL (0.8-1.5) 06/25/18 07:03 Est GFR ( Amer) > 60 06/25/18 07:03 Est GFR (Non-Af Amer) > 60 06/25/18 07:03 Random Glucose 108 mg/dL (75-110) 06/25/18 07:03 Calcium 8.2 mg/dl (8.6-10.4) L 06/25/18 07:03 Total Bilirubin 0.5 mg/dL (0.2-1.3) 06/25/18 07:03 AST 12 U/L (17-59) L D 06/25/18 07:03 ALT 30 U/L (21-72) 06/25/18 07:03 Alkaline Phosphatase 37 U/L (38-126) L 06/25/18 07:03 Total Protein 6.4 g/dL (6.3-8.3) 06/25/18 07:03 Albumin 3.6 g/dL (3.5-5.0) 06/25/18 07:03 Globulin 2.8 gm/dL (2.2-3.9) 06/25/18 07:03 Albumin/Globulin Ratio 1.3 (1.0-2.1) 06/25/18 07:03 Lipase 70 U/L (23-300) 06/23/18 11:41 Urine Color Yellow (YELLOW) 06/23/18 11:41 Urine Clarity Clear (Clear) 06/23/18 11:41 Urine pH 6.0 (5.0-8.0) 06/23/18 11:41 Ur Specific [place] 1.025 (1.003-1.030) 06/23/18 11:41 Urine Protein Negative mg/dL (NEGATIVE) 06/23/18 11:41 Urine Glucose (UA) Normal mg/dL (Normal) 06/23/18 11:41 Urine Ketones Negative mg/dL (NEGATIVE) 06/23/18 11:41 Urine Blood Negative (NEGATIVE) 06/23/18 11:41 Urine Nitrate Negative (NEGATIVE) 06/23/18 11:41 Urine Bilirubin Negative (NEGATIVE) 06/23/18 11:41 Urine Urobilinogen 2.0 mg/dL (0.2-1.0) 06/23/18 11:41 Ur Leukocyte Esterase Neg Ofrd/uL (Negative) 06/23/18 11:41 Urine RBC (Auto) 1 /hpf (0-3) 06/23/18 11:41 HIV 1&2 Antibody Screen Negative (NEGATIVE) 06/25/18 07:03 - Hospital Course Hospital Course: Pt is a 42yo M with PMH diverticulitis, HTN, and migraines who presents to the ED with abdominal pain for 3 days. He reports a sharp, pulsating abdominal pain that he rates "20/10" on the left side. He reports previous history of this type of pain (last ED visit 05/01/18) for which he was worked up for diverticulitis (s/p colonoscopy ?date, reported diverticulitis). He tried taking ibuprofen at home, but had no relief. He also reports associated dysuria for the past day, denying change in frequency of urination or any blood in the urine. He reports normal bowel movements, denying constipation or diarrhea. He denies any nausea, vomiting, chest pain, shortness of breath, dizziness. Patient is a 42yo M with PMH of diverticulitis, HTN, and migraines who presents to the ED with abdominal pain for 3 days. He reports a sharp, pulsating abdominal pain on the left side. CT abdomen (06/23): acute diverticulitis of distal L colon, possible gallstones/sludge in gallbladder. Over the course of his stay he was treated with Ciprofloxacin, Flagyl, Solumedrol, and dilaudid. Pstient was also NPO and had IV fluids. On day 2 of admission, patient states that he was feeling much better and requested to eat. Patient's diet was advanced to soft diet then regular diet. Upon discharge, patient was instructed to resume all home medications as prescribed by his primary care doctor. Follow up with his doctor, Dr. Ware within 1 week of discharge and follow up with surgery outpatient for possible surgical interventions. He was instructed to resume diet and activity as tolerated and to increase his fiber intake. Patient was instructed to return to the nearest emergency for worsening or newly concerning symptoms. Primary Diagnosis: Acute diverticulitis 1. Resume all home medications as prescribed by your primary care doctor. 2. Follow up with your doctor, Dr. Ware within 1 week of discharge. Follow up with surgery outpatient for possible surgical interventions. 3. Resume diet and activity as tolerated. 4. Increase your fiber intake, eat more fruits and vegetables. 5. Return to the nearest emergency for worsening or newly concerning symptoms. Patient is clear for discharge for Dr. Ware. Patient is being given antibiotics and steroids to be taken as directed. He is also being a refill if another attack occurs: Ciprofloxacin 500mg by mouth twice a day Metronidazole 500mg by mouth three times a day Medrol Dose pack as described on packaging Losartan 50mg by mouth once a day Setraline 100mg by mouth once a day Please follow up with Dr. Ware within a week. If symptoms return or worsen, come back to the ED. Plan discussed with patient who understands and agrees. This is a summary of the hospital course. Please refer to the EMR for more details. - Date & Time of H&P Date of H&P: 06/25/18 Time of H&P: 16:45 Discharge Exam - Head Exam Head Exam: ATRAUMATIC, NORMOCEPHALIC - Eye Exam Eye Exam: EOMI, Normal appearance, PERRL - ENT Exam ENT Exam: Mucous Membranes Moist - Respiratory Exam Respiratory Exam: Clear to PA & Lateral, NORMAL BREATHING PATTERN. absent: Rales, Rhonchi, Wheezes - Cardiovascular Exam Cardiovascular Exam: REGULAR RHYTHM, +S1, +S2. absent: Gallop, Rubs, Systolic Murmur - GI/Abdominal Exam GI & Abdominal Exam: Normal Bowel Sounds, Soft. absent: Distended, Firm, Guarding, Tenderness Additional comments: mild TTP LLQ, greatly improved - Extremities Exam Extremities exam: normal capillary refill, pedal pulses present - Neurological Exam Neurological exam: Alert, Oriented x3 - Psychiatric Exam Psychiatric exam: Normal Affect, Normal Mood - Skin Skin Exam: Normal Color, Warm Discharge Plan - Discharge Medications Prescriptions: Ciprofloxacin [Cipro] 500 mg PO BID #14 tab Losartan [Cozaar] 50 mg PO DAILY #7 tab Methylprednisolone [Medrol Dose Pack (21 tabs)] 4 mg PO DAILY #21 mg Metronidazole 500 mg PO TID #21 tablet Sertraline [Zoloft] 100 mg PO DAILY #14 tab - Follow Up Plan Disposition: HOME/ ROUTINE Instructions: Ciprofloxacin (Systemic), Diverticulitis (DC), Metronidazole (Systemic), Losartan, Methylprednisolone, Sertraline Additional Instructions: 1. Resume all home medications as prescribed by your primary care doctor. 2. Follow up with your doctor, Dr. Ware within 1 week of discharge. Follow up with surgery outpatient for possible surgical interventions. 3. Resume diet and activity as tolerated. 4. Increase your fiber intake, eat more fruits and vegetables. 5. Return to the nearest emergency for worsening or newly concerning symptoms. Patient is clear for discharge for Dr. Ware. Patient is being given antibiotics and steroids to be taken as directed. He is also being a refill if another attack occurs: Ciprofloxacin 500mg by mouth twice a day Metronidazole 500mg by mouth three times a day Medrol Dose pack as described on packaging Losartan 50mg by mouth once a day Setraline 100mg by mouth once a day Please follow up with Dr. Ware within a week. If symptoms return or worsen, come back to the ED. Plan discussed with patient who understands and agrees. Referrals: Shane Ware Jr., MD [Medical Doctor] -
== END 2018-06-25 18:55 | disposition home or self-care (01) | DRG 392 ==
LOC: C.ER 10:32 → C.9E 15:37 → C.3T 16:57
PROVIDERS: ADMIT Internal Medicine; ATTEND Internal Medicine
DX: K57.92 Diverticulitis of intestine, part unspecified, without perforation or abscess without bleeding (principal); I10 Essential (primary) hypertension